=== PATIENT | female | born 1935 | race Caucasian/White ===

== ENCOUNTER 2020-03-19 08:54 | Outpatient (CLI) | payer OTHER | END 2020-03-19 08:57 | disposition home or self-care (01) | LOC: SONOGRAMA 08:54 | PROVIDERS: ATTEND Pathology Anatomic Pathology & Clinical Pathology | DX: C73 Malignant neoplasm of thyroid gland (principal); D34 Benign neoplasm of thyroid gland; E04.8 Other specified nontoxic goiter; E07.89 Other specified disorders of thyroid ==